=== PATIENT | female | born 1990 | race Caucasian/White ===

== ENCOUNTER 2018-02-02 15:33 | Emergency (ER) | payer SELFPAY ==
[2018-02-02 15:53] VITALS: BP 109/69
[2018-02-02] MEDS ORDERED: Ibuprofen TAB* 600 MG PO ONE (15:55)
--- NOTE | 2018-02-02 16:28 | UC ---
Lower Extremity/Ankle HPI - HPI Summary HPI Summary: While walking on stairs at work twistedL ankle and fell, also bumped L knee. Difficulty with walking but is bearing weight. - History of Current Complaint Chief Complaint: UCLowerExtremity Stated Complaint: FOOT INJURY Time Seen by Provider: 02/02/18 15:54 Hx Obtained From: Patient Hx Last Menstrual Period: 01/04/18 Onset/Duration: Sudden Onset Severity Initially: Moderate Severity Currently: Moderate Pain Intensity: 5 Aggravating Factor(s): Standing, Ambulation Alleviating Factor(s): Rest Able to Bear Weight: Yes Related History: Occupational Injury - Allergies/Home Medications Allergies/Adverse Reactions: Allergies Allergy/AdvReac Type Severity Reaction Status Date / Time cefprozil [From Cefzil] Allergy Hives Verified 02/02/18 15:45 PMH/Surg Hx/FS Hx/Imm Hx Previously Healthy: Yes - Surgical History Surgical History: Yes Surgery Procedure, Year, and Place: appy - Family History Known Family History: Positive: Unknown - patient is not sure of any disease processes in her family - Social History Occupation: Employed Full-time Alcohol Use: None Substance Use Type: None Smoking Status (MU): Former Smoker - Immunization History Most Recent Influenza Vaccination: [id number] Most Recent Tetanus Shot: 125lbs Review of Systems Constitutional: Negative Skin: Other - abrasion L ankle Eyes: Negative ENT: Negative Respiratory: Negative Cardiovascular: Negative Gastrointestinal: Negative Genitourinary: Negative Motor: Negative Neurovascular: Negative Musculoskeletal: Arthralgia, Decreased ROM Neurological: Negative Psychological: Negative Is Patient Immunocompromised?: No All Other Systems Reviewed And Are Negative: Yes Physical Exam Triage Information Reviewed: Yes Appearance: Well-Appearing, Well-Nourished Vital Signs: Initial Vital Signs Temp 98.2 F 02/02/18 15:46 Pulse 99 02/02/18 15:46 Resp 16 02/02/18 15:46 BP 109/69 02/02/18 15:46 Pulse Ox 99 02/02/18 15:46 Vital Signs Reviewed: Yes Eye Exam: Normal Eyes: Positive: Conjunctiva Clear ENT Exam: Normal ENT: Positive: Normal ENT inspection, Hearing grossly normal, Pharynx normal Dental Exam: Normal Neck exam: Normal Neck: Positive: Supple, Nontender Respiratory Exam: Normal Respiratory: Positive: Chest non-tender, Lungs clear, Normal breath sounds, No respiratory distress Cardiovascular Exam: Normal Cardiovascular: Positive: RRR, No Murmur Musculoskeletal Exam: Other - L ankle lateral tenderness Musculoskeletal: Positive: ROM Intact Neurological Exam: Normal Psychological Exam: Normal Skin Exam: Other - abrasion L lateral ankle Lower Extremity Course/Dx - Differential Dx/Diagnosis Provider Diagnoses: L ankle sprain. L ankle abrasion Discharge - Discharge Plan Condition: Stable Disposition: HOME Patient Education Materials: Ankle Sprain (ED) Forms: *Work Release Referrals: Kiko Mcguire MD [Primary Care Provider] - Araseli Montes MD [Medical Doctor] - If Needed Additional Instructions: Your injury appears to be mild, and I expect your symptoms to resolve quickly. If you are not walking more or less pain-free in 10-14 days, please follow up with the orthopedist.
--- NOTE | 2018-02-02 16:40 | RAD ---
INDICATION: Left ankle injury. TECHNIQUE: 3 views of the left ankle were obtained. FINDINGS: There is anterior soft tissue swelling. The bones are in normal alignment. No fracture is seen. Joint spaces appear maintained. IMPRESSION: SOFT TISSUE SWELLING, NO FRACTURE IS SEEN.
== END 2018-02-02 17:24 | disposition home or self-care (01) ==
LOC: UCEAST 15:33
DX: S93.402A Sprain of unspecified ligament of left ankle, initial encounter (principal); S90.512A Abrasion, left ankle, initial encounter; W10.9XXA Fall (on) (from) unspecified stairs and steps, initial encounter; Y93.9 Activity, unspecified; Y92.89 Other specified places as the place of occurrence of the external cause; Y99.0 Civilian activity done for income or pay; Z32.02 Encounter for pregnancy test, result negative; Z88.1 Allergy status to other antibiotic agents; Z87.891 Personal history of nicotine dependence
CPT/HCPCS: 84702; 99212; A9270-GY; G0463